=== PATIENT | female | born 1980 | race Two or more races ===

== ENCOUNTER 2017-04-30 10:04 | Emergency (ER) | payer SELFPAY ==
[~2017-04-30] VITALS: Ht 152.4 cm; Wt 74.8 kg
[~2017-04-30 10:04] MED LIST: MACROBID100 MG PO; MOTRIN800 MG PO; PRILOSEC20 MG PO; RANITIDINE HCL150 MG PO; ULTRAM50 MG PO; ZOFRAN ODT4 MG PO
[2017-04-30 10:47] LABS: HEMATOCRIT 41.2 % (36.0-46.0); MCH 30.6 PG (29.0-34.0); MCV 90.2 FL (83-99); MEAN PLAT.VOLUME 9.8 uM^3 (9.5-12.4); PLATELET COUNT 237 K/uL (156-360); RBC DIS.WIDTH-CV 12.8 % (11.8-14.6); RBC DIS.WIDTH-SD 41.9 % (39-53); RED BLOOD COUNT 4.57 M/uL (3.80-5.20); WHITE BLOOD COUNT 6.3 K/uL (4.1-10.2)
[2017-04-30 10:57] LABS: CHLORIDE 105 mEq/L (99-109); POTASSIUM 3.8 mEq/L (3.7-5.4); SODIUM 142 mEq/L (136-147)
[2017-04-30 10:59] LABS: GLUCOSE 102 mg/dL (70-99)
[2017-04-30 11:00] LABS: ANION GAP 9 MEQ/L (2-14)
[2017-04-30 11:01] LABS: TOTAL BILIRUBIN 0.6 mg/dL (0.0-1.0)
[2017-04-30 11:02] LABS: ALKALINE PHOSPHATASE 80 IU/L (3-129)
[2017-04-30 11:03] LABS: GFR ESTIMATE (CALCULATED) > 59 mL/min/
[2017-04-30 11:04] LABS: DIRECT BILIRUBIN 0.2 mg/dL (0.0-0.3); UREA NITROGEN (BUN) 11 mg/dL (9-23)
[2017-04-30 11:06] LABS: LIPASE 24 U/L (1.0-51.0); TROP-I INTERPRETATION NEGATIVE; TROPONIN-I < 0.01 ng/mL (0.0-0.30)
[2017-04-30 13:21] VITALS: BP 102/82
== END 2017-04-30 13:23 | disposition home or self-care (01) ==
LOC: EME 10:04
DX: K29.70 Gastritis, unspecified, without bleeding (principal); R51 Headache; Z90.49 Acquired absence of other specified parts of digestive tract
CPT/HCPCS: 71020; 80048; 80076; 83690; 84484; 85027; 93005; 99281; 99283

== ENCOUNTER 2017-06-29 11:25 | Emergency (ER) | payer SELFPAY ==
[~2017-06-29] VITALS: Ht 154.9 cm; Wt 75.0 kg
[2017-06-29] MEDS ORDERED: PREDNISONE20 MG PO (13:44)
[2017-06-29] MEDS ORDERED: LIDODERM 5% P1 PATCH TD (13:44)
[2017-06-29] MEDS ORDERED: VALIUM2 MG PO (13:44)
[2017-06-29] MEDS ORDERED: NAPROXEN500 MG PO (13:44)
[2017-06-29 14:01] VITALS: BP 137/83
== END 2017-06-29 14:02 | disposition home or self-care (01) ==
LOC: EME 11:25
DX: M54.16 Radiculopathy, lumbar region (principal); Z88.0 Allergy status to penicillin
CPT/HCPCS: 99281; 99284; J1885; J7512

== ENCOUNTER → 2017-10-15 | Outpatient (CLI) | payer OTHER ==
[~2017-10-15] VITALS: Ht 154.9 cm; Wt 75.7 kg
[~2017-10-15] MED LIST changes: +LIDODERM 5% P1 PATCH TD; +MULTIPLE VITAM1 EAC1 PO; +NAPROXEN500 MG PO; +PREDNISONE20 MG PO; +PROBIOTIC1 EAC3 PO; +VALIUM2 MG PO
== END | disposition home or self-care (01) ==
LOC: AMB 06:41
DX: D13.0 Benign neoplasm of esophagus (principal); K29.70 Gastritis, unspecified, without bleeding; K21.9 Gastro-esophageal reflux disease without esophagitis; R10.13 Epigastric pain
CPT/HCPCS: 88305; 88342 TC